=== PATIENT | female | born 1995 | race Caucasian/White ===

== ENCOUNTER 2017-07-10 15:43 | Emergency (ER) | payer MEDICAID ==
[~2017-07-10] VITALS: Ht 170.2 cm; Wt 85.0 kg
[2017-07-10 15:49] VITALS: BP 117/79
== END 2017-07-10 17:03 | disposition home or self-care (01) ==
LOC: ED 15:43
DX: S22.32XA Fracture of one rib, left side, initial encounter for closed fracture (principal); S72.002A Fracture of unspecified part of neck of left femur, initial encounter for closed fracture; M54.9 Dorsalgia, unspecified; Z88.0 Allergy status to penicillin; V49.49XA Driver injured in collision with other motor vehicles in traffic accident, initial encounter; Y93.89 Activity, other specified; Y99.8 Other external cause status; Y92.89 Other specified places as the place of occurrence of the external cause
CPT/HCPCS: J1885

== ENCOUNTER 2018-04-18 01:25 | Emergency (ER) | payer SELFPAY ==
[~2018-04-18] VITALS: Ht 170.2 cm; Wt 83.0 kg
[2018-04-18 01:31] VITALS: Ht 170.2 cm; Wt 83.0 kg
[2018-04-18 02:04] LABS: CALCIUM 8.4 mg/dL (8.5-10.1); CARBON DIOXIDE 25.9 mmol/L (21-32); CHLORIDE SERUM 106 mmol/L (98-107); CREATININE SERUM 0.8 mg/dL (0.6-1.0); GFR1 > 60 mL/min; GLUCOSE SERUM 101 mg/dL (74-106); SODIUM SERUM 141 mmol/L (136-145)
[2018-04-18 02:09] LABS: ALBUMIN 3.8 g/dL (3.4-5.0); ALKALINE PHOSPHATASE 72 U/L (46-116); ALT/SGPT 46 U/L (14-59); AST/SGOT 27 U/L (15-37); BILIRUBIN TOTAL 0.56 mg/dL (0.20-1.00); TOTAL PROTEIN, SERUM 7.4 g/dL (6.4-8.2)
[2018-04-18 02:15] LABS: BASOPHIL % 0.4 % (0-2)
[2018-04-18 02:19] LABS: PLATELET COUNT 213 x10^3mcL (130-400); RED CELL DISTRIBUTION WIDTH 13.2 % (11.5-14.5)
[2018-04-18 04:08] VITALS: BP 124/75
== END 2018-04-18 04:09 | disposition home or self-care (01) ==
LOC: ED 01:25
PROVIDERS: Emergency Medicine
DX: R07.89 Other chest pain (principal); R42 Dizziness and giddiness; R00.2 Palpitations; Z88.0 Allergy status to penicillin
CPT/HCPCS: 36415; 85378; J1885; Q0092; Q0177

== ENCOUNTER 2018-05-22 09:50 | Emergency (ER) | payer SELFPAY ==
[2018-05-22 10:00] VITALS: Ht 170.2 cm
[2018-05-22 13:23] VITALS: BP 106/66
== END 2018-05-22 13:23 | disposition home or self-care (01) ==
LOC: ED 09:50
DX: R07.89 Other chest pain (principal); M54.5 Low back pain; Z88.0 Allergy status to penicillin
CPT/HCPCS: J1885